=== PATIENT | male | born 1980 | race American Indian/Alaskan Native ===

== ENCOUNTER 2017-08-24 15:36 | Emergency (ER) | payer MEDICAID, OTHER ==
[~2017-08-24] VITALS: Ht 177.8 cm; Wt 118.0 kg
[~2017-08-24 15:36] MED LIST: HYDR-569 PO; ONDA4TAB6 PO
[2017-08-24] MEDS ORDERED: albuterol 2.5 MG/3 ML nebule NEB ONE (16:10)
[2017-08-24] MEDS ORDERED: predniSONE 20 mg tablet PO ONE (16:10)
[2017-08-24 16:30] VITALS: BP 110/73
[2017-08-24] MEDS ORDERED: PRED20TA PO (16:40)
[2017-08-24] MEDS ORDERED: ALBU8.5H8 INH (16:40)
== END 2017-08-24 17:30 | disposition home or self-care (01) ==
LOC: ER 15:36
DX: J45.901 Unspecified asthma with (acute) exacerbation (principal); G89.29 Other chronic pain; Z79.899 Other long term (current) drug therapy
CPT/HCPCS: 94640; 94760; 99283; J7512

== ENCOUNTER 2017-09-28 04:50 | Inpatient (IN) | payer MEDICAID, OTHER ==
[~2017-09-28] VITALS: Ht 177.8 cm; Wt 120.5 kg
[~2017-09-28 04:50] MED LIST changes: +ALBU8.5H8 INH
[2017-09-28] MEDS ORDERED: ALBU8.5H8 INH (04:57)
[2017-09-28] MEDS ORDERED: morphine 4 MG/ML inj SYRINge IV ONE (05:05)
[2017-09-28] MEDS ORDERED: ondansetron/PF 4mg/2ml inj IV ONE (05:05)
[2017-09-28] MEDS ORDERED: normal saline 1000ml 1,000 ML IV ONE (05:05)
[2017-09-28 05:30] LABS: BASOPHILS % (AUTO) 0.3 % (0-1); EOSINOPHILS # (AUTO) 0.4 X10'3 (0-0.9); EOSINOPHILS % (AUTO) 4.4 % (0-6); HEMATOCRIT 43.8 % (42.0-52.0); HEMOGLOBIN 15.1 g/dl (14.0-17.9); LYMPHOCYTES # (AUTO) 1.9 X10'3 (1.1-4.8); LYMPHOCYTES % (AUTO) 22.8 % (21-51); MEAN CORPUSCULAR HEMOGLOBIN 30.3 PG (27.0-31.0); MEAN CORPUSCULAR HGB CONC 34.4 % (33.0-36.5); MEAN CORPUSCULAR VOLUME 88.3 FL (78-98); MEAN PLATELET VOLUME 7.7 FL (7.4-10.4); MONOCYTES # (AUTO) 0.6 X10'3 (0-0.9); MONOCYTES % (AUTO) 6.8 % (2-12); NEUTROPHILS # (AUTO) 5.6 X10'3 (1.8-7.7); NEUTROPHILS % (AUTO) 65.7 % (42-75); PLATELET COUNT 190 X10'3 (140-440); RED BLOOD COUNT 4.97 X10'6 (4.70-6.10); RED CELL DISTRIBUTION WIDTH 13.6 % (11.5-14.5); WHITE BLOOD COUNT 8.5 X10'3 (4.5-11.0)
[2017-09-28 05:46] LABS: GLUCOSE 119 MG/DL (70-104); SODIUM 140 MMOL/L (135-145)
[2017-09-28 05:47] LABS: ALANINE AMINOTRANSFERASE 53 U/L (12-78); ALBUMIN 3.3 G/DL (3.4-5.0); ALBUMIN/GLOBULIN RATIO 0.8 (1.1-1.5); ALKALINE PHOSPHATASE 95 IU/L (46-116); ANION GAP 9 (8-16); ASPARTATE AMINO TRANSFERASE 31 U/L (10-37); BILIRUBIN,TOTAL 1.2 MG/DL (0.1-1.0); BLOOD UREA NITROGEN 14 MG/DL (7-18); BUN/CREATININE RATIO 10.9 (5.4-32.0); CALCIUM 8.3 MG/DL (8.5-10.1); CHLORIDE 105 MMOL/L (99-107); CREATININE 1.28 MG/DL (0.60-1.10); LIPASE 97 U/L (73-393); POTASSIUM 3.4 MMOL/L (3.5-5.1); TOTAL CARBON DIOXIDE 25.9 MMOL/L (24-32); TOTAL PROTEIN 7.5 G/DL (6.4-8.2); eGFR 63 ML/MIN
[2017-09-28 05:56] LABS: CLARITY,URINE Clear (Clear); COLOR,URINE Yellow (Yellow); GLUCOSE, URINE Negative (Neg); KETONES,URINE Trace mg/dl (Neg); LEUKOCYTE ESTERASE ,URINE Negative (Neg); NITRITES, URINE Negative (Neg); OCCULT BLOOD,URINE Negative (Neg); PROTEIN,URINE Negative (Neg)
[2017-09-28 06:02] LABS: UA COLLECTION TYPE VOIDED
[2017-09-28] MEDS ORDERED: mag hydrox/Alum hydrox/simeth 30ml oral suspension PO PRN (09:25)
[2017-09-28] MEDS ORDERED: acetaminophen 325mg tablet PO PRN (09:25)
[2017-09-28] MEDS ORDERED: morphine 4 MG/ML inj SYRINge IV PRN ×2 (09:25)
[2017-09-28] MEDS ORDERED: ondansetron/PF 4mg/2ml inj IV PRN (09:25)
[2017-09-28] MEDS ORDERED: magnesium hydroxide 30ml (MOM) UD suspension PO PRN (09:25)
[2017-09-28] MEDS ORDERED: RANI150T44 PO (09:36)
[2017-09-28] MEDS: potassium cl 20mEq in 1/2 NS 1,000 ML IV SCH ×2 (09:58→23:50)
[2017-09-28 12:35] VITALS: BP 138/68
[2017-09-28] MEDS ORDERED: ALBU18HF2 INH (15:29)
[2017-09-28] MEDS: enoxaparin 40mg/0.4ml syringe SUBCUT SCH (15:44)
[2017-09-28] MEDS: metroNIDAZOLE-Flagyl 500mg/NS 100 ML IV SCH ×2 (15:50→23:50)
[2017-09-28] MEDS: ciprofloxacin lact 400MG/200ML 200 ML IV SCH (19:48)
[2017-09-28 20:00] VITALS: BP 102/58
[2017-09-29] VITALS (17 sets, daily range): BP systolic 109–150; BP diastolic 63–95
[2017-09-29] MEDS: potassium cl 20mEq in 1/2 NS 1,000 ML IV SCH ×2 (05:21→14:41)
[2017-09-29 05:36] LABS: BASOPHILS % (AUTO) 0.3 % (0-1); EOSINOPHILS # (AUTO) 0.5 X10'3 (0-0.9); EOSINOPHILS % (AUTO) 8.4 % (0-6); HEMATOCRIT 41.2 % (42.0-52.0); HEMOGLOBIN 14.2 g/dl (14.0-17.9); LYMPHOCYTES # (AUTO) 1.8 X10'3 (1.1-4.8); LYMPHOCYTES % (AUTO) 30.6 % (21-51); MEAN CORPUSCULAR HEMOGLOBIN 30.7 PG (27.0-31.0); MEAN CORPUSCULAR HGB CONC 34.5 % (33.0-36.5); MEAN PLATELET VOLUME 7.9 FL (7.4-10.4); MONOCYTES # (AUTO) 0.4 X10'3 (0-0.9); MONOCYTES % (AUTO) 6.2 % (2-12); NEUTROPHILS # (AUTO) 3.3 X10'3 (1.8-7.7); NEUTROPHILS % (AUTO) 54.5 % (42-75); PLATELET COUNT 183 X10'3 (140-440); RED BLOOD COUNT 4.63 X10'6 (4.70-6.10); RED CELL DISTRIBUTION WIDTH 13.7 % (11.5-14.5)
[2017-09-29 05:54] LABS: ALANINE AMINOTRANSFERASE 122 U/L (12-78); ALBUMIN 2.9 G/DL (3.4-5.0); ALBUMIN/GLOBULIN RATIO 0.8 (1.1-1.5); ALKALINE PHOSPHATASE 121 IU/L (46-116); ANION GAP 7 (8-16); ASPARTATE AMINO TRANSFERASE 56 U/L (10-37); BILIRUBIN,TOTAL 1.6 MG/DL (0.1-1.0); BLOOD UREA NITROGEN 8 MG/DL (7-18); BUN/CREATININE RATIO 7.1 (5.4-32.0); CALCIUM 8.6 MG/DL (8.5-10.1); CHLORIDE 108 MMOL/L (99-107); CREATININE 1.12 MG/DL (0.60-1.10); GLUCOSE 88 MG/DL (70-104); POTASSIUM 4.3 MMOL/L (3.5-5.1); SODIUM 143 MMOL/L (135-145); TOTAL CARBON DIOXIDE 28.1 MMOL/L (24-32); TOTAL PROTEIN 6.6 G/DL (6.4-8.2); eGFR 74 ML/MIN
[2017-09-29] MEDS: metroNIDAZOLE-Flagyl 500mg/NS 100 ML IV SCH ×2 (07:23→16:53)
[2017-09-29 08:25] LABS: PRE OP PROTIME 10.2 SECONDS (9.0-12.0)
[2017-09-29] MEDS: ciprofloxacin lact 400MG/200ML 200 ML IV SCH ×2 (08:39→20:26)
[2017-09-29] MEDS ORDERED: ipratropium/albuterol 3ml nebule NEB PRN (09:45)
[2017-09-29] MEDS ORDERED: ceFAZolin 1000mg inj ONE (11:00)
[2017-09-29] MEDS ORDERED: bupivacaine (with preservative) 5 mg/ml inj. 50ml ONE (11:00)
[2017-09-29] MEDS ORDERED: fentaNYL/PF 50MCG/1 ML 2ML syringe ONE (12:00)
[2017-09-29] MEDS ORDERED: midazolam 2 mg/2 ml injection ONE (12:00)
[2017-09-29] MEDS ORDERED: LIDOcaine 2% 5ml jelly ONE (12:11)
[2017-09-29] MEDS ORDERED: rocuronium 10mg/ml inj IV ONE (12:11)
[2017-09-29] MEDS ORDERED: ondansetron/PF 4mg/2ml inj ONE (12:11)
[2017-09-29] MEDS ORDERED: propofol inj 20 ML IV ONE (12:11)
[2017-09-29] MEDS ORDERED: LIDOcaine 2% (20mg/ml) 5ml vial ONE (12:11)
[2017-09-29] MEDS ORDERED: dexamethasone sod phosphate 4mg/ml inj. ONE (12:11)
[2017-09-29] MEDS ORDERED: meperidine/PF 25mg/ml syringe IV PRN ×3 (12:55)
[2017-09-29] MEDS ORDERED: ondansetron/PF 4mg/2ml inj IV PRN (12:55)
[2017-09-29] MEDS ORDERED: acetaminophen 1,000mg/100ml IV 100 ML IV PRN (12:55)
[2017-09-29] MEDS ORDERED: proCHLORperazine 10 MG/2 ml inj IV PRN (12:55)
[2017-09-29] MEDS ORDERED: ringers solution, lacted 1,000 ML IV SCH (12:55)
[2017-09-29] MEDS ORDERED: morphine 4 MG/ML inj SYRINge IV PRN ×2 (12:55)
[2017-09-29] MEDS ORDERED: meperidine/PF 25mg/ml syringe ONE (12:57)
[2017-09-29] MEDS ORDERED: HYDROcodone/acetaminophen 5mg/325mg tablet PO PRN (17:20)
[2017-09-29] MEDS: lactobacillus rhamnosus 10,000 MMU CELLS/CAPSULE PO SCH (20:26)
[2017-09-30] VITALS: BP_SYST 129; BP_SYST 98; BP_DIAS 57; BP_DIAS 78
[2017-09-30] MEDS: metroNIDAZOLE-Flagyl 500mg/NS 100 ML IV SCH ×2 (01:15→07:40)
[2017-09-30] MEDS: potassium cl 20mEq in 1/2 NS 1,000 ML IV SCH ×2 (01:15→14:07)
[2017-09-30 06:00] LABS: BASOPHILS % (AUTO) 0.1 % (0-1); EOSINOPHILS % (AUTO) 0 % (0-6); HEMATOCRIT 41.4 % (42.0-52.0); HEMOGLOBIN 14.2 g/dl (14.0-17.9); LYMPHOCYTES # (AUTO) 0.8 X10'3 (1.1-4.8); LYMPHOCYTES % (AUTO) 8.2 % (21-51); MEAN CORPUSCULAR HEMOGLOBIN 30.3 PG (27.0-31.0); MEAN CORPUSCULAR HGB CONC 34.4 % (33.0-36.5); MEAN CORPUSCULAR VOLUME 88.1 FL (78-98); MEAN PLATELET VOLUME 7.9 FL (7.4-10.4); MONOCYTES # (AUTO) 0.4 X10'3 (0-0.9); MONOCYTES % (AUTO) 3.9 % (2-12); NEUTROPHILS # (AUTO) 8.9 X10'3 (1.8-7.7); NEUTROPHILS % (AUTO) 87.8 % (42-75); PLATELET COUNT 199 X10'3 (140-440); RED BLOOD COUNT 4.69 X10'6 (4.70-6.10); RED CELL DISTRIBUTION WIDTH 13.7 % (11.5-14.5); WHITE BLOOD COUNT 10.1 X10'3 (4.5-11.0)
[2017-09-30 06:17] LABS: ALANINE AMINOTRANSFERASE 106 U/L (12-78); ALBUMIN/GLOBULIN RATIO 0.7 (1.1-1.5); ALKALINE PHOSPHATASE 112 IU/L (46-116); ANION GAP 8 (8-16); ASPARTATE AMINO TRANSFERASE 41 U/L (10-37); BILIRUBIN,TOTAL 1.1 MG/DL (0.1-1.0); BLOOD UREA NITROGEN 8 MG/DL (7-18); BUN/CREATININE RATIO 7.6 (5.4-32.0); CALCIUM 8.6 MG/DL (8.5-10.1); CHLORIDE 104 MMOL/L (99-107); CREATININE 1.05 MG/DL (0.60-1.10); GLUCOSE 122 MG/DL (70-104); POTASSIUM 4.1 MMOL/L (3.5-5.1); SODIUM 139 MMOL/L (135-145); TOTAL CARBON DIOXIDE 27.3 MMOL/L (24-32); TOTAL PROTEIN 7.1 G/DL (6.4-8.2); eGFR 79 ML/MIN
[2017-09-30] MEDS: lactobacillus rhamnosus 10,000 MMU CELLS/CAPSULE PO SCH (07:40)
[2017-09-30] MEDS: enoxaparin 40mg/0.4ml syringe SUBCUT SCH (07:41)
[2017-09-30 07:42] VITALS: BP 125/76
[2017-09-30] MEDS: ciprofloxacin lact 400MG/200ML 200 ML IV SCH (10:15)
[2017-09-30] MEDS ORDERED: HYDR-569 PO (10:39)
== END 2017-09-30 17:08 | disposition home or self-care (01) | DRG 419 ==
LOC: ER 04:50 → ED HOLD 09:21 → SUR 3N 12:37 → PACU 09-29 11:07 → SUR 3N 09-29 13:33
PROVIDERS: ADMIT Internal Medicine; ATTEND Internal Medicine
PROC: 0FT44ZZ Resection of Gallbladder, Percutaneous Endoscopic Approach (ICD-10-PCS; principal; 2017-09-29 11:59)
DX: K80.10 Calculus of gallbladder with chronic cholecystitis without obstruction (principal); G89.29 Other chronic pain; M54.9 Dorsalgia, unspecified; R74.8 Abnormal levels of other serum enzymes; J44.9 Chronic obstructive pulmonary disease, unspecified; E66.9 Obesity, unspecified; Z68.38 Body mass index [BMI] 38.0-38.9, adult; Z79.899 Other long term (current) drug therapy
CPT/HCPCS: 96361; 96365; 96375; 99285; Z7506; 36415; 74181; 76700; 80053; 81003; 83690; 85025; 85610; 85730; 87070; 94640; 94760; A7000; J0690; J0744; J1100; J1650; J2001; J2175; J2250; J2270; J2405; J2704; J3010; J3490; J7030; J7120

== ENCOUNTER 2018-11-23 11:19 | Emergency (ER) | payer MEDICAID ==
[~2018-11-23] VITALS: Ht 180.3 cm; Wt 122.7 kg
[~2018-11-23 11:19] MED LIST changes: +ALBU18HF2 INH; -ALBU8.5H8 INH; +HYDR-4383 PO; -HYDR-569 PO; -ONDA4TAB6 PO; +RANI-648 PO
[2018-11-23] MEDS ORDERED: albuterol 2.5 MG/3 ML nebule NEB ONE (11:45)
[2018-11-23 12:29] VITALS: BP 153/71
[2018-11-23] MEDS ORDERED: ALBU8HFA PO (12:35)
== END 2018-11-23 12:30 | disposition home or self-care (01) ==
LOC: ER 11:20
DX: J45.909 Unspecified asthma, uncomplicated (principal); G89.29 Other chronic pain; Z79.899 Other long term (current) drug therapy
CPT/HCPCS: 94640; 94760; 99283

== ENCOUNTER 2022-10-12 06:11 | Emergency (ER) | payer SELFPAY ==
[~2022-10-12] VITALS: Ht 177.8 cm; Wt 135.0 kg
[2022-10-12 06:44] LABS: BASOPHILS % (AUTO) 0.5 % (0-1); EOSINOPHILS # (AUTO) 0.4 X10'3 (0-0.9); EOSINOPHILS % (AUTO) 6.5 % (0-6); HEMATOCRIT 44.6 % (42.0-52.0); HEMOGLOBIN 15.3 g/dl (14.0-17.9); MEAN CORPUSCULAR HEMOGLOBIN 30.1 PG (27.0-31.0); MEAN CORPUSCULAR HGB CONC 34.3 g/dL (33.0-36.5); MEAN CORPUSCULAR VOLUME 87.8 FL (78-98); MEAN PLATELET VOLUME 7.7 FL (7.4-10.4); MONOCYTES # (AUTO) 0.6 X10'3 (0-0.9); MONOCYTES % (AUTO) 8.1 % (2-12); NEUTROPHILS # (AUTO) 3.8 X10'3 (1.8-7.7); NEUTROPHILS % (AUTO) 54.9 % (42-75); PLATELET COUNT 180 X10'3 (140-440); RED BLOOD COUNT 5.08 X10'6 (4.70-6.10); RED CELL DISTRIBUTION WIDTH 13.8 % (11.5-14.5); WHITE BLOOD COUNT 6.8 X10'3 (4.5-11.0)
[2022-10-12 06:55] LABS: APTT 28 SECONDS (22-32)
[2022-10-12 07:06] LABS: ALANINE AMINOTRANSFERASE 94 U/L (12-78); ALBUMIN 3.3 G/DL (3.4-5.0); ALBUMIN/GLOBULIN RATIO 0.8 (1.1-1.5); ALKALINE PHOSPHATASE 129 IU/L (46-116); ANION GAP 8 (8-16); ASPARTATE AMINO TRANSFERASE 28 U/L (10-37); BILIRUBIN,TOTAL 0.7 MG/DL (0.1-1.0); BLOOD UREA NITROGEN 13 MG/DL (7-18); BUN/CREATININE RATIO 11.8 (10.0-20.0); CALCIUM 8.6 MG/DL (8.5-10.1); CHLORIDE 106 MMOL/L (99-107); GLUCOSE 120 MG/DL (70-104); POTASSIUM 3.5 MMOL/L (3.5-5.1); SODIUM 141 MMOL/L (135-145); TOTAL CARBON DIOXIDE 27.3 MMOL/L (24-32); TOTAL PROTEIN 7.6 G/DL (6.4-8.2); eGFR 73 ML/MIN
[2022-10-12] MEDS ORDERED: OMEP40CA21 PO (07:12)
[2022-10-12] MEDS ORDERED: ALBU18HF2 INH (07:12)
[2022-10-12 07:36] VITALS: BP 138/87
== END 2022-10-12 07:38 | disposition home or self-care (01) ==
LOC: ER 06:11
DX: R07.89 Other chest pain (principal); R10.10 Upper abdominal pain, unspecified; J45.909 Unspecified asthma, uncomplicated
CPT/HCPCS: 36415; 71045; 80053; 83880; 84484; 85025; 85610; 85730; 93005; 99285